=== PATIENT | female | born 1975 | race Caucasian/White ===

== ENCOUNTER → 2020-02-21 | Outpatient (CLI) | payer OTHER | END | disposition home or self-care (01) | LOC: RAD 09:49 → EDSTATUS 10:00 | PROVIDERS: ATTEND Genetic Counselor, MS | DX: E07.9 Disorder of thyroid, unspecified (principal) | CPT/HCPCS: 76536 ==

== ENCOUNTER 2020-05-09 09:25 | Outpatient (CLI) | payer OTHER | END 2020-05-09 23:59 | disposition home or self-care (01) | LOC: CFH 09:25 | PROVIDERS: ATTEND Obstetrics & Gynecology Gynecology | DX: Z12.31 Encounter for screening mammogram for malignant neoplasm of breast (principal) | CPT/HCPCS: 77067 ==